=== PATIENT | female | born 1960 | race Caucasian/White ===

== ENCOUNTER 2019-03-27 22:22 | Emergency (ER) | payer MEDICAID ==
--- NOTE | 2019-03-27 22:47 | EDM.PDOC ---
ED HPI GENERAL MEDICAL PROBLEM - General Chief Complaint: General Stated Complaint: AMB Time Seen by Provider: 03/27/19 22:29 - History of Present Illness INITIAL COMMENTS - FREE TEXT/NARRATIVE: HISTORY AND PHYSICAL: History of present illness: Patient's a 59-year-old female who presents after having taken an unknown pill for pain in her neck and was reported to have altered mental status and incontinence of bowel paramedics were called transported patient to emergency department on arrival here patient's awake alert oriented 3 she is with significant other and sister with stable vital signs in declining any diagnostics or other treatment. Review of systems: As per history of present illness and below otherwise all systems reviewed and negative. Past medical history: As per history of present illness and as reviewed below otherwise noncontributory. Surgical history: As per history of present illness and as reviewed below otherwise noncontributory. Social history: No reported history of drug or alcohol abuse. Family history: As per history of present illness and as reviewed below otherwise noncontributory. Physical exam: HEENT: Atraumatic, normocephalic, pupils reactive, negative for conjunctival pallor or scleral icterus, mucous membranes moist, throat clear, neck supple, nontender, trachea midline. Lungs: Clear to auscultation, breath sounds equal bilaterally, chest nontender. Heart: S1S2, regular, negative for clicks, rubs, or JVD. Abdomen: Soft, nondistended, nontender. Negative for masses or hepatosplenomegaly. Negative for costovertebral tenderness. Pelvis: Stable nontender. Genitourinary: Deferred. Rectal: Deferred. Extremities: Atraumatic, negative for cords or calf pain. Neurovascular unremarkable. Neuro: Awake, alert, oriented. Cranial nerves II through XII unremarkable. Cerebellum unremarkable. Motor and sensory unremarkable throughout. Exam nonfocal. Diagnostics: Deferred Therapeutics: Deferred Impression: #1 medical screening exam Definitive disposition and diagnosis as appropriate pending reevaluation and review of above. - Related Data Allergies Allergy/AdvReac Type Severity Reaction Status Date / Time No Known Allergies Allergy Verified 03/27/19 22:30 Home Meds: Home Meds Losartan [Cozaar] 25 mg PO DAILY 05/22/14 [History] Omeprazole 20 mg PO BID 05/22/14 [History] PARoxetine [Paxil] 20 mg PO DAILY 05/22/14 [History] atorvaSTATin [Lipitor] 20 mg PO BEDTIME 05/22/14 [History] hydroCHLOROthiazide [Hydrochlorothiazide] 12.5 mg PO DAILY 05/22/14 [History] Fenofibrate,Micronized [Fenofibrate] 134 mg PO DAILY 12/17/14 [History] Past Medical History Cardiovascular History: Reports: Hypertension Psychiatric History: Reports: Depression Other Dermatologic History: eczema to hands and feet - Infectious Disease History Infectious Disease History: Reports: Chicken Pox, Measles, Mumps - Past Surgical History Other HEENT Surgeries/Procedures: wears glasses Social & Family History - Family History Family Medical History: Noncontributory - Tobacco Use Smoking Status *Q: Current Every Day Smoker Years of Tobacco use: 40 Packs/Tins Daily: 1 - Caffeine Use Caffeine Use: Reports: Coffee - Recreational Drug Use Recreational Drug Use: Yes Recreational Drug Type: Reports: Marijuana/Hashish ED ROS GENERAL - Review of Systems Review Of Systems: ROS reveals no pertinent complaints other than HPI. ED EXAM, GENERAL - Physical Exam Exam: See Below (The dictation) Course - Vital Signs Last Recorded V/S: Last Vital Signs Temp 36.0 C 03/27/19 22:31 Pulse 86 03/27/19 22:31 Resp 18 03/27/19 22:31 BP 128/82 03/27/19 22:31 Pulse Ox 95 03/27/19 22:31 Departure - Departure Time of Disposition: 22:46 Disposition: Home, Self-Care 01 Condition: Good Clinical Impression: Encounter for medical screening examination - Discharge Information Referrals: PCP,None [Primary Care Provider] - Additional Instructions: The following information is given to patients seen in the emergency department who are being discharged to home. This information is to outline your options for follow-up care. We provide all patients seen in our emergency department with a follow-up referral. The need for follow-up, as well as the timing and circumstances, are variable depending upon the specifics of your emergency department visit. If you don't have a primary care physician on staff, we will provide you with a referral. We always advise you to contact your personal physician following an emergency department visit to inform them of the circumstance of the visit and for follow-up with them and/or the need for any referrals to a consulting specialist. The emergency department will also refer you to a specialist when appropriate. This referral assures that you have the opportunity for followup care with a specialist. All of these measure are taken in an effort to provide you with optimal care, which includes your followup. Under all circumstances we always encourage you to contact your private physician who remains a resource for coordinating your care. When calling for followup care, please make the office aware that this follow-up is from your recent emergency room visit. If for any reason you are refused follow-up, please contact the [facility] emergency department at and asked to speak to the emergency department charge nurse. Follow-up primary medical doctor as needed as discussed do not take unknown pills return as needed as discussed
[2019-03-27 23:13] VITALS: BP 91/53; PULSE 83
== END 2019-03-27 23:05 | disposition home or self-care (01) ==
LOC: MW.ED 22:22
DX: Z04.89 Encounter for examination and observation for other specified reasons (principal); I10 Essential (primary) hypertension; F32.9 Major depressive disorder, single episode, unspecified; F17.210 Nicotine dependence, cigarettes, uncomplicated; Z79.899 Other long term (current) drug therapy
CPT/HCPCS: 99284

== ENCOUNTER 2024-09-03 06:40 | Day surgery (SDC) | payer MEDICAID ==
[~2024-09-03 06:40] MED LIST: Acetaminophen 1,000 MG in Premix Bag 1 BAG IV SCH; Dexamethasone 4 MG/ML 5 ML MDV ONE; Lidocaine 2% 5 ML SDV ONE; Magnesium Sulfate (4.06 MEQ/ML) 5 GM/10 ML SDV ONE; Morphine 10 MG/ML SDV ONE; Ondansetron 4 MG/2 ML SDV ONE; Rocuronium Bromide 50 MG/5 ML Syringe ONE; Scopalamine 1mg/3day Transdermal Patch TOP ONE; Sugammadex Sodium 200 MG/2 ML VIAL IV ONE; ceFAZolin 2 GM in Sodium Chloride 0.9% 50 ML IV ONE; fentaNYL 100 MCG/2 ML SDV ONE
[2024-09-03] MEDS ORDERED: Ropivacaine 0.5% 5 MG/ML 30 ML SDV ONE (06:50)
[2024-09-03] MEDS ORDERED: Metoclopramide 10 MG/2 ML SDV IVPUSH PRN (06:50)
[2024-09-03] MEDS ORDERED: Morphine 2 MG/ML SYRINGE IVPUSH PRN (06:50)
[2024-09-03] MEDS ORDERED: Phenylephrine HCl In 0.9% NaCl 1 MG/10 ML Syringe IVPUSH PRN (06:50)
[2024-09-03] MEDS ORDERED: Naloxone 0.4 MG/ML SDV IVPUSH PRN (06:50)
[2024-09-03] MEDS ORDERED: propofoL 1,000 MG/100 ML 100 ML ONE (06:50)
[2024-09-03] MEDS ORDERED: fentaNYL 50 MCG/ML SDV IVPUSH PRN (06:50)
[2024-09-03] MEDS: Lactated Ringers 1,000 ML IV SCH (07:08)
[2024-09-03] MEDS: Pregabalin 75 MG Cap PO SCH (07:12)
[2024-09-03] MEDS ORDERED: Bupivacaine 0.25% 30 ML SDV ONE (07:19)
[2024-09-03] MEDS ORDERED: Phenylephrine HCl In 0.9% NaCl 1 MG/10 ML Syringe ONE (08:07)
[2024-09-03] MEDS ORDERED: ceFAZolin 2 GM Vial ONE (08:10)
[2024-09-03] MEDS ORDERED: Esmolol 100 MG/10 ML SDV ONE (08:28)
[2024-09-03] MEDS ORDERED: Scopalamine 1mg/3day Transdermal Patch ONE (08:37)
[2024-09-03] MEDS ORDERED: propofoL 500 MG/50 ML 50 ML ONE ×2 (08:39)
[2024-09-03] MEDS ORDERED: Ketorolac 30 MG/ML SDV ONE (09:09)
[2024-09-03] MEDS ORDERED: Sugammadex Sodium 200 MG/2 ML VIAL IV ONE (09:24)
[2024-09-03] MEDS: HYDROmorphone 1 MG/ML Syringe IVPUSH PRN (09:55)
[2024-09-03] MEDS: Ondansetron 4 MG/2 ML SDV IVPUSH PRN (10:01)
[2024-09-03 12:19] VITALS: PULSE 82
[2024-09-03] MEDS: Albuterol 0.083% 2.5 MG/3 ML Neb Soln NEB PRN (12:49)
[2024-09-03 13:43] VITALS: BP 123/54
== END 2024-09-03 14:25 | disposition home or self-care (01) ==
LOC: MW.SDS 06:40
PROVIDERS: ATTEND Surgery
DX: K80.10 Calculus of gallbladder with chronic cholecystitis without obstruction (principal); J44.9 Chronic obstructive pulmonary disease, unspecified; F41.9 Anxiety disorder, unspecified; K21.9 Gastro-esophageal reflux disease without esophagitis; F32.A Depression, unspecified; I10 Essential (primary) hypertension; E78.00 Pure hypercholesterolemia, unspecified; F17.210 Nicotine dependence, cigarettes, uncomplicated; Z79.82 Long term (current) use of aspirin; Z79.899 Other long term (current) drug therapy
CPT/HCPCS: 47562; 94640; A9270; J0665; J0690; J1100; J1171; J1805; J1885; J2003; J2272; J2371; J2405; J2704; J2795; J3010; J3475; J7120; J7620; 00790; 01810; 64486; J3490